=== PATIENT | male | born 1980 | race African-American/Black ===

== ENCOUNTER 2017-03-05 03:12 | Emergency (ER) | payer OTHER ==
[~2017-03-05 03:12] MED LIST: BENTYL10 MG PO; CARAFATE1 G PO; DILANTIN PO; HYDROCODONE-APAP PO; ONE DAILY ADUL1 EACH PO; PERCOCET5/325 PO; PHENERGAN PO; PHENERGAN PR; PROTONIX PO; REGLAN10 MG PO; THIAMINE HCL100 MG PO; VICODIN 5/500 T1 TAB PO; VICODIN PO; VIOKASE 8 TABL468 MG PO; ZOFRAN ODT4 MG PO
== END 2017-03-05 03:20 | disposition home or self-care (01) ==
LOC: CED 03:12
DX: S29.9XXA Unspecified injury of thorax, initial encounter (principal); F17.200 Nicotine dependence, unspecified, uncomplicated; Y04.8XXA Assault by other bodily force, initial encounter
CPT/HCPCS: 99282; 99283

== ENCOUNTER 2017-06-22 18:56 | Inpatient (IN) | payer OTHER ==
[~2017-06-22] VITALS: Ht 182.9 cm; Wt 67.0 kg
--- NOTE | ~2017-06-22 | DS ---
Unit #: [id number] #: [id number] Patient: MG RILEY [id number] [facility]. [place], [place] [address] [id number] MR#: [id number] NAME: MG RILEY. ROOM: 331 Age: 36 Sex: M Admission Date: 06/23/2017 : 1980 Discharge Date: 06/26/2017 Attending Physician: Barrie Marin M.D. Primary Care Physician: Christin Primary Care Physician DISCHARGE SUMMARY HOSPITAL COURSE The patient is a 36-year-old man with prior history significant for alcoholic pancreatitis, recent ERCP and stent placement done on June 04, 2017 at [facility], who presents to [facility] with symptoms of abdominal pain, nausea, and vomiting. CAT scan of the abdomen demonstrated mild peripancreatic edema and a 1 cm cyst in the tail of the pancreas. Surgery was consulted and it was felt that this was a sequela of a recent pancreatitis episode exacerbated by alcohol consumption. During his admission, the patient received IV fluids for hydration, IV antiemetics, and medications for pain relief. Subsequently, patient was able to tolerate oral feeds without difficulty. The patient is to follow up with his change booth attendant, Dr. Chin. DISCHARGE MEDICATIONS 1. Creon 24,000 unit capsule one capsule three times a day with meals. 2. Omeprazole 40 mg daily. 3. Folic acid 1 mg daily. 4. Hydrocodone 5/325 mg one tablet p.o. q.6 p.r.n. DISCHARGE INSTRUCTIONS 1. Patient is to abstain from alcohol consumption. 2. He is to follow up with his change booth attendant, Dr. Chin, as an outpatient. Phone number to make an appointment was given to the patient. Dictated by... Angie Sheth/zoe TD: 06/29/2017 09:23 JOB #: [id number] Unit #: [id number] #: [id number] Patient: MG RILEY DISCHARGE SUMMARY Page 1 of 1 X X DISCHARGE SUMMARY
--- NOTE | ~2017-06-22 | CT5 ---
[facility] A Service of [facility] RADIOLOGY TEXT RESULTS PATIENT: MG RILEY LOCATION: [facility] 331-01 : 82 UNIT #: [id number] AGE: [address]: JORDIN MARIN V SEX: M ORDER DR: [id number] [facility]. [place], [place] [address] [id number] MR#: [id number] Acc #: [id number] NAME: MG RILEY. : 1980 SEX: M STUDY DATE/TIME: 06/23/2017 16:40 UNIT: [address] ROOM: [facility] STUDY DESCRIPTION: CT Abdomen W Cont Attending Physician: Jordin Marin M.D. Ordering Physician: Jordin Marin M.D. Primary Care Physician: No Primary Care Physician MEDICAL IMAGING REPORT This report is preliminary unless electronic signature is present EXAM CT abdomen and pelvis CT with contrast HISTORY Generalized abdominal pain since 06/22/2017 HISTORY Chronic pancreatitis and stents placed within the anchors 2 weeks ago. COMPARISON STUDIES CT abdomen and pelvis 06/12/2017 FINDINGS Axial images form through the abdomen following IV contrast. Multiplanar reconstructions. This CT exam was performed with one or more of the following radiation dose reduction techniques: automatic exposure control, adjustment of mA and/or kV according to patient size, and iterative reconstruction. FINDINGS Lung bases suggest emphysema. The liver demonstrates slight decreased attenuation relative to the spleen and may represent fatty change. Biliary stent is in expected position. Gallbladder appears normal. There is a small cystic area in the region of the tail of pancreas could represent a small pseudocyst. This measures about a centimeter. Small amount of peripancreatic edema may represent the sequelae of pancreatitis. There is small amount of pancreatic calcification particularly within the head and uncinate process. There is mild dilatation of the pancreatic duct in the pancreatic duct stent remains in place. Kidneys and adrenal glands appear normal. No free air or free fluid. GI tract unremarkable. Aorta and IVC appear normal. Osseous structures soft tissues unremarkable. [facility] A Service of [facility] RADIOLOGY TEXT RESULTS PATIENT: MG RILEY LOCATION: [facility] 331-01 : 82 UNIT #: [id number] AGE: [address]: JORDIN MARIN V SEX: M ORDER DR: IMPRESSION 1. Biliary and pancreatic duct stents appear appropriate position. 2. Chronic changes within the pancreas compatible with a chronic pancreatitis though superimposed acute pancreatitis not excluded. There is mild peripancreatic edema as well as a small cyst in the tail of the pancreas may represent a pseudocyst. Pancreatic head calcifications compatible with chronic pancreatitis. Dictated by... Guadalupe Oseguera M.D. THIS IS AN ELECTRONICALLY VERIFIED REPORT Guadalupe Oseguera M.D. at 06/23/2017 9:38 PM Vasquez TD: 06/23/2017 19:47 JOB #: [id number] MEDICAL IMAGING REPORT Page 1 of 1 COPY
--- NOTE | ~2017-06-22 | HP ---
Unit #: [id number] #: [id number] Patient: MG RILEY [id number] [address] [address] [id number] I MR#: [id number] NAME: MG RILEY. ROOM: 331 Age: 36 Sex: M Admission Date: 06/23/2017 : 1980 Attending Physician: Barrie Marin M.D. Primary Care Physician: Primary Care Physician No HISTORY AND PHYSICAL HISTORY OF PRESENT ILLNESS The patient is a 36-year-old man with a history significant for chronic alcoholic pancreatitis and a recent ERCP with stent placement done on 06/04/2017, at [facility]. He presents to [facility] with abdominal pain, nausea and vomiting. Onset sudden. Duration, prior to arrival. Timing, continuous. Intensity, [id number]-vi-[id number]. No aggravating or relieving factors. PAST MEDICAL HISTORY 1. Recurrent pancreatitis 2. Seizure disorder, on Dilantin 3. Recurrent EtOH abuse PAST SURGICAL HISTORY ERCP with stent placement on 06/04/2017, EGD on 06/12/2017 at [facility] ALLERGIES Morphine, penicillin, Demerol HOME MEDICATIONS 1. Creon 24,000 unit capsule 1 three times daily 2. Folic acid 1 mg daily 3. Hydrocodone 5/325 mg 1 tablet p.o. every 6 p.r.n. 4. Flagyl 500 mg p.o. every 8 hours 5. Omeprazole 40 mg p.o. daily SOCIAL HISTORY Chronic alcohol use. Alcohol level on arrival, 218. REVIEW OF SYSTEMS As per history of present illness. Rest of 12-point review of systems negative. PHYSICAL EXAMINATION VITAL SIGNS: Temperature 98.3, heart rate 73 per minute, blood pressure 136/79, O2 saturations 98%, respirations 14 per minute. GENERAL: Awake, alert, oriented, normal build. HEENT: Oropharynx is clear. Head: Atraumatic, normocephalic. NECK: Trachea midline. Supple. CARDIOVASCULAR: S1, S2, regular rate and rhythm. LUNGS: Clear to auscultation bilaterally. ABDOMEN: Bowel sounds positive, nondistended. Nonspecific generalized discomfort. Unit #: [id number] #: [id number] Patient: ROSEMARY,JOERON L EXTREMITIES: No edema. No cyanosis. CENTRAL NERVOUS SYSTEM: No focal deficits. ASSESSMENT AND PLAN 1. Gglmi-ar-ovybgqx pancreatitis secondary to recurrent EtOH: Plan is to order IV fluids for hydration, order IV pain medication, order IV antiemetics, order CAT scan of the abdomen for evaluation, stents. 2. Seizure disorder: No recurrence of seizures currently. Continue home dose of Dilantin. Dictated by Angie Sheth/gianfranco TD: 06/23/2017 17:04 JOB #: [id number] HISTORY AND PHYSICAL Page 1 of 1 X X HISTORY AND PHYSICAL
--- NOTE | ~2017-06-22 | CO ---
Unit #: [id number] #: [id number] Patient: MG SERRANO [id number] [address] [place], [place] [address] [id number] I MR#: [id number] NAME: MG SERRANO. ROOM: 331 Age: 36 Sex: M Admission Date: 06/23/2017 : 1980 Attending Physician: Barrie Marin M.D. Primary Care Physician: Christin Primary Care Physician Requesting Physician: Barrie Marin M.D. Consultation Date: 06/25/2017 CONSULTATION REPORT REASON FOR CONSULTATION 1. Epigastric pain. 2. Pancreatitis. 3. Pancreatic pseudocyst. HISTORY OF PRESENT ILLNESS Thank you very much for asking us to see Mr. Serrano, a 36-year-old black male who has a long history of problems with pancreatitis. 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 He states he required a pancreaticojejunostomy in the past by Dr. Van Pritchett, who is a biliary and pancreatic specialist with [facility]. Most recently he required a biliary and pancreatic stent placed at [facility] by Dr. Mary Kate Chin. He states that he has chronic upper and mid abdominal pain. He has pain that radiates to the back. This has been persistent. He states he has had some dark stools. He has also had some coffee ground emesis after vomiting several times. He presents at this time for further evaluation and treatment. He denies any bright red blood per rectum. The patient had a Ct scan performed on admission. This revealed a normal gallbladder. There was a small cystic area in the region of the tail of the pancreas that could be a small pseudocyst. There is a small amount of peripancreatic edema that may represent the sequelae of recent pancreatitis. There is mild dilatation of the pancreatic duct. The GI tract was unremarkable. There were no other significant findings. PAST MEDICAL HISTORY 1. Recurrent pancreatitis. 2. Seizure disorder. 3. History of alcohol abuse. 4. Pancreaticojejunostomy and stent placement of the biliary and pancreatic ducts. SOCIAL HISTORY Chronic alcohol use. Positive tobacco use. FAMILY HISTORY Noncontributory. ALLERGIES Morphine, penicillin and Demerol. CURRENT MEDICATIONS Please see medication reconciliation sheet. Unit #: [id number] #: [id number] Patient: MG SERRANO REVIEW OF SYSTEMS Negative except for above. IMMUNIZATIONS Unknown. PHYSICAL EXAMINATION GENERAL: Well-developed black male in no apparent distress. VITALS: Afebrile with a temperature of 98.3, pulse 73, respiratory rate 16, blood pressure 112/70. HEENT: Sclerae not icteric. Extraocular movements are intact. NECK: Supple. No thyromegaly or adenopathy. BACK: No CVA or spinous tenderness. ABDOMEN: Flat, soft, moderate diffuse tenderness, but no rebound, peroneal signs, masses or rigidity. EXTREMITIES: No calf tenderness. No erythema. DIAGNOSTIC STUDIES LABORATORY: The patient has a glucose of 157, normal liver function studies other than an AST of 73, ALT 47, alkaline phosphatase 131 and a normal amylase and lipase. White blood cell count is 2.8, hemoglobin 11.8, hematocrit 34.7, MCV 99. ASSESSMENT/PLAN The patient is a 36-year-old black male with chronic pancreatitis related to his alcohol use as well as pancreatic ductal abnormality. On CT scan he was found to have peripancreatic mild edema and a 1 cm cyst in the tail of the pancreas. These are most likely the sequelae of his recent pancreatitis and will most likely resolve over time with conservative therapy. We feel he should have increased upper GI prophylaxis by changing his Protonix to q.12 h., Mylanta more regularly and Milk of Magnesia to help him move his bowels. Will follow him closely with you. Thank you very much for this consultation. We really appreciate it. Dictated by... Ivan Woody M.D. JOSE/yeimy TD: 06/25/2017 11:19 JOB #: [id number] CC: [facility] Angie Sheth M.D. Gary C Vitale, M.D. Unit #: [id number] #: [id number] Patient: MG SERRANO CONSULTATION REPORT Page 1 of 1 X Ivan Woody MD CONSULTATION REPORT
[2017-06-22 20:02] LABS: BASOPHIL% 0.5 % (0-2.5); EOSINOPHIL# 0.1 X10e3 (0-0.7); EOSINOPHIL% 1.8 % (0.0-7.0); HEMATOCRIT 40.7 % (38.0-50.0); HEMOGLOBIN 13.8 gm/dL (13.0-16.0); LYMPHOCYTE# 1.7 X10e3 (1.0-3.5); LYMPHOCYTE% 33.3 % (17.0-45.0); MEAN CELL VOLUME 99.3 FL (83-96); MEAN CORPUSCULAR HEMOGLOBIN 33.7 PG (28-34); MEAN CORPUSCULAR HGB CONC 33.9 g/dL (30-36); MEAN PLATELET VOLUME 8.1 FL (6.5-11.5); MONOCYTE# 0.5 X10e3 (0-1.0); MONOCYTE% 9.2 % (3.0-12.0); NEUTROPHIL# 2.8 X10e3 (1.5-7.1); NEUTROPHIL% 55.2 % (40-75); RED CELL DISTRIBUTION WIDTH 15.3 % (11.0-15.5); WHITE BLOOD COUNT 5.1 X10e3 (4.0-10.5)
[2017-06-22 20:06] LABS: URINE SOURCE CLEAN CATCH
[2017-06-22 20:14] LABS: URINE APPEARANCE CLEAR; URINE BILIRUBIN NEG (NEG); URINE BLOOD NEG (NEG); URINE COLOR YELLOW; URINE GLUCOSE NEG (NEG); URINE KETONE NEG (NEG); URINE LEUKOCYTE ESTERASE NEG (NEG); URINE NITRATE NEG (NEG); URINE PH 5.5 (5-8); URINE PROTEIN NEG (NEG); URINE SPECIFIC GRAVITY 1.006 (1.003-1.035); URINE UROBILINOGEN 0.2 MG/DL (NEG)
[2017-06-22 20:25] LABS: CULTURE INDICATED? NO
[2017-06-22 20:26] LABS: ALBUMIN SERUM 4.3 g/dL (3.5-5.0); BILIRUBIN, DIRECT 0.1 mg/dL (0.0-0.2); BILIRUBIN,TOTAL 0.1 mg/dL (0.2-2.0); BUN/CREATININE RATIO 12.85; CALCIUM SERUM 9.1 mg/dL (8.4-10.2); CREATININE SERUM 0.7 mg/dL (0.6-1.4); GLOM FILT RATE Estimated 142.8 mL/min (>60); POTASSIUM 3.1 mmol/L (3.5-5.1); PROTEIN TOTAL SERUM 7.3 g/dL (6.0-8.3)
[2017-06-22 20:40] LABS: DIFF IND NO; PLATELET COUNT 359 X10e3 (140-420)
[2017-06-22] MEDS ORDERED: CREON DR 24,001 EACH PO (21:24)
[2017-06-22] MEDS ORDERED: HYDROCODON-ACE1 EAC7 PO (21:25)
[2017-06-22] MEDS ORDERED: FOLIC ACID1 MG PO (21:25)
[2017-06-22] MEDS ORDERED: LEVAQUIN PO (21:25)
[2017-06-22] MEDS ORDERED: FLAGYL PO (21:26)
[2017-06-22] MEDS ORDERED: OMEPRAZOLE40 M1 PO (21:26)
[2017-06-22] MEDS ORDERED: MELOXICAM7.5 MG PO (21:26)
[2017-06-23 00:29] LABS: AMPHETAMINE NEG (NEG); BARBITURATES NEG (NEG); BENZODIAZEPINES NEG (NEG); COCAINE NEG (NEG); MARIJUANA NEG (NEG); OPIATES POS (NEG); TRICYCLIC ANTIDEPRESSANTS NEG (NEG); U METHADONE NEG (NEG)
[2017-06-23 20:10] LABS: BASOPHIL% 0.7 % (0-2.5); EOSINOPHIL# 0.1 X10e3 (0-0.7); EOSINOPHIL% 2.5 % (0.0-7.0); HEMATOCRIT 37.2 % (38.0-50.0); HEMOGLOBIN 12.5 gm/dL (13.0-16.0); LYMPHOCYTE# 1.6 X10e3 (1.0-3.5); LYMPHOCYTE% 35.3 % (17.0-45.0); MEAN CELL VOLUME 99.4 FL (83-96); MEAN CORPUSCULAR HEMOGLOBIN 33.3 PG (28-34); MEAN CORPUSCULAR HGB CONC 33.5 g/dL (30-36); MEAN PLATELET VOLUME 7.2 FL (6.5-11.5); MONOCYTE# 0.5 X10e3 (0-1.0); MONOCYTE% 11.8 % (3.0-12.0); NEUTROPHIL# 2.2 X10e3 (1.5-7.1); NEUTROPHIL% 49.7 % (40-75); PLATELET COUNT 415 X10e3 (140-420); RED BLOOD COUNT 3.74 X10e (3.90-5.60); RED CELL DISTRIBUTION WIDTH 15.1 % (11.0-15.5); WHITE BLOOD COUNT 4.5 X10e3 (4.0-10.5)
[2017-06-23 20:15] LABS: DIFF IND NO
[2017-06-23 20:36] LABS: BUN/CREATININE RATIO 12.22; CALCIUM SERUM 8.8 mg/dL (8.4-10.2); CREATININE SERUM 0.9 mg/dL (0.6-1.4); GLOM FILT RATE Estimated 128.7 mL/min (>60); POTASSIUM 3.5 mmol/L (3.5-5.1)
[2017-06-24 06:03] LABS: HEMATOCRIT 34.7 % (38.0-50.0); HEMOGLOBIN 11.8 gm/dL (13.0-16.0); MEAN CORPUSCULAR HEMOGLOBIN 33.7 PG (28-34); MEAN PLATELET VOLUME 7.5 FL (6.5-11.5); RED BLOOD COUNT 3.51 X10e (3.90-5.60); RED CELL DISTRIBUTION WIDTH 15.8 % (11.0-15.5); WHITE BLOOD COUNT 3.8 X10e3 (4.0-10.5)
[2017-06-24 06:43] LABS: BUN/CREATININE RATIO 12.85; CALCIUM SERUM 8.5 mg/dL (8.4-10.2); CREATININE SERUM 0.7 mg/dL (0.6-1.4); GLOM FILT RATE Estimated 142.8 mL/min (>60); POTASSIUM 3.5 mmol/L (3.5-5.1)
[2017-06-25 07:11] LABS: THYROID STIMULATING HORMONE 2.96 uIU/ml (0.34-5.60)
[2017-06-25 07:18] LABS: FREE THYROXIN (T4) 0.78 ng/dL (0.58-1.64)
[2017-06-26 04:52] LABS: HEMATOCRIT 34.4 % (38.0-50.0); HEMOGLOBIN 11.5 gm/dL (13.0-16.0); MEAN CELL VOLUME 99.4 FL (83-96); MEAN CORPUSCULAR HEMOGLOBIN 33.3 PG (28-34); MEAN CORPUSCULAR HGB CONC 33.5 g/dL (30-36); MEAN PLATELET VOLUME 7.7 FL (6.5-11.5); RED BLOOD COUNT 3.46 X10e (3.90-5.60); RED CELL DISTRIBUTION WIDTH 15.7 % (11.0-15.5); WHITE BLOOD COUNT 4.7 X10e3 (4.0-10.5)
[2017-06-26 05:45] LABS: BUN/CREATININE RATIO 8.75; CALCIUM SERUM 9.2 mg/dL (8.4-10.2); CREATININE SERUM 0.8 mg/dL (0.6-1.4); GLOM FILT RATE Estimated 135.1 mL/min (>60); POTASSIUM 3.9 mmol/L (3.5-5.1)
[2017-06-26] MEDS ORDERED: PHENYTOIN SODI100 M4 PO (13:30)
== END 2017-06-26 13:45 | disposition home or self-care (01) | DRG 439 ==
LOC: CED 18:56 → CEDOF 06-23 00:54 → CED 06-23 01:07 → C3A PCU 06-23 02:54 → CEDOF 06-23 02:54 → C3A PCU 06-23 07:48
PROVIDERS: Emergency Medicine; Family Medicine; Internal Medicine; Nurse Practitioner Family
PROC: 05H533Z Insertion of Infusion Device into Right Subclavian Vein, Percutaneous Approach (ICD-10-PCS; principal; 2017-06-23)
PROC: B546ZZA Ultrasonography of Right Subclavian Vein, Guidance (ICD-10-PCS; 2017-06-23)
DX: K85.20 Alcohol induced acute pancreatitis without necrosis or infection (principal); K86.3 Pseudocyst of pancreas; F10.20 Alcohol dependence, uncomplicated; K86.0 Alcohol-induced chronic pancreatitis; G40.909 Epilepsy, unspecified, not intractable, without status epilepticus; F17.210 Nicotine dependence, cigarettes, uncomplicated; Z88.0 Allergy status to penicillin; Y90.7 Blood alcohol level of 200-239 mg/100 ml
CPT/HCPCS: 36415; 74160; 80048; 80076; 80307; 81003; 82150; 83690; 84439; 84443; 85025; 85027; 86592; 96361; 96374; 96375; 96376; 99285; C9113; G0480; J1170; J1650; J2405; J2550; J3411; J7042; Q9967

== ENCOUNTER 2017-07-14 01:03 | Emergency (ER) | payer OTHER ==
[~2017-07-14] VITALS: Ht 182.9 cm; Wt 68.0 kg
[~2017-07-14 01:03] MED LIST changes: +CREON DR 24,001 EACH PO; +FLAGYL PO; +FOLIC ACID1 MG PO; +HYDROCODON-ACE1 EAC7 PO; +LEVAQUIN PO; +MELOXICAM7.5 MG PO; +OMEPRAZOLE40 M1 PO; +PHENYTOIN SODI100 M4 PO
[2017-07-14 02:33] LABS: BASOPHIL% 0.6 % (0-2.5); EOSINOPHIL% 0.5 % (0.0-7.0); HEMATOCRIT 39.4 % (38.0-50.0); HEMOGLOBIN 13.1 gm/dL (13.0-16.0); LYMPHOCYTE# 1.3 X10e3 (1.0-3.5); LYMPHOCYTE% 32.6 % (17.0-45.0); MEAN CELL VOLUME 98.8 FL (83-96); MEAN CORPUSCULAR HEMOGLOBIN 32.8 PG (28-34); MEAN CORPUSCULAR HGB CONC 33.2 g/dL (30-36); MEAN PLATELET VOLUME 7.1 FL (6.5-11.5); MONOCYTE# 0.4 X10e3 (0-1.0); MONOCYTE% 10.2 % (3.0-12.0); NEUTROPHIL# 2.2 X10e3 (1.5-7.1); NEUTROPHIL% 56.1 % (40-75); PLATELET COUNT 270 X10e3 (140-420); RED BLOOD COUNT 3.98 X10e (3.90-5.60); RED CELL DISTRIBUTION WIDTH 15.7 % (11.0-15.5); WHITE BLOOD COUNT 3.9 X10e3 (4.0-10.5)
[2017-07-14 02:35] LABS: DIFF IND NO
[2017-07-14 03:29] LABS: ALBUMIN SERUM 4.5 g/dL (3.5-5.0); BILIRUBIN, DIRECT 0.1 mg/dL (0.0-0.2); BILIRUBIN,INDIRECT 0.4 mg/dL (0.0-0.9); BILIRUBIN,TOTAL 0.5 mg/dL (0.2-2.0); CALCIUM SERUM 9.1 mg/dL (8.4-10.2); CREATININE SERUM 0.6 mg/dL (0.6-1.4); GLOM FILT RATE Estimated 152.1 mL/min (>60); POTASSIUM 3.5 mmol/L (3.5-5.1); PROTEIN TOTAL SERUM 7.4 g/dL (6.0-8.3)
[2017-07-14 03:31] LABS: URINE SOURCE CLEAN CATCH
[2017-07-14 03:37] LABS: URINE APPEARANCE CLEAR; URINE BILIRUBIN NEG (NEG); URINE BLOOD NEG (NEG); URINE COLOR YELLOW; URINE GLUCOSE NEG (NEG); URINE KETONE NEG (NEG); URINE LEUKOCYTE ESTERASE NEG (NEG); URINE NITRATE NEG (NEG); URINE PROTEIN NEG (NEG); URINE SPECIFIC GRAVITY 1.013 (1.003-1.035); URINE UROBILINOGEN 0.2 MG/DL (NEG)
[2017-07-14 03:44] LABS: CULTURE INDICATED? NO
== END 2017-07-14 10:54 | disposition home or self-care (01) ==
LOC: CED 01:03
DX: K86.1 Other chronic pancreatitis (principal); F10.129 Alcohol abuse with intoxication, unspecified; R19.7 Diarrhea, unspecified; Z98.890 Other specified postprocedural states; F17.210 Nicotine dependence, cigarettes, uncomplicated; Z79.899 Other long term (current) drug therapy; Z88.1 Allergy status to other antibiotic agents; Z88.5 Allergy status to narcotic agent; Z88.8 Allergy status to other drugs, medicaments and biological substances
CPT/HCPCS: 36415; 80048; 80076; 81003; 82947; 83690; 85025; 99284; G0480